=== PATIENT | female | born 1960 | race Caucasian/White ===

== ENCOUNTER 2021-02-23 09:53 | Day surgery (SDC) | payer OTHER ==
[2021-03-11] MEDS ORDERED: MULVITA PO (11:14)
[2021-03-11] MEDS ORDERED: Vitamin C100 MG PO (11:14)
[2021-03-11] MEDS ORDERED: DICL75ER PO (11:14)
[2021-03-11] MEDS ORDERED: Vitamin B Comple1 EA PO (11:15)
[2021-03-11] MEDS ORDERED: ZINC15 PO (11:15)
[2021-03-11] MEDS ORDERED: UBID10 PO (11:15)
== END 2021-02-23 22:46 | disposition home or self-care (01) ==
LOC: MOI US 09:53
DX: C50.911 Malignant neoplasm of unspecified site of right female breast (principal); Z17.0 Estrogen receptor positive status [ER+]
CPT/HCPCS: 19083; 77065; 88305; 88360; A4648; G0279

== ENCOUNTER 2021-03-20 08:57 | Day surgery (SDC) | payer OTHER ==
[~2021-03-20 08:57] MED LIST: DICL75ER PO; MULVITA PO; UBID10 PO; Vitamin B Comple1 EA PO; Vitamin C100 MG PO; ZINC15 PO
== END 2021-03-20 22:41 | disposition home or self-care (01) ==
LOC: MOI US 08:57 → MOI MAM 09:30 → MOI US 22:41
DX: C50.411 Malignant neoplasm of upper-outer quadrant of right female breast (principal); Z12.0 Encounter for screening for malignant neoplasm of stomach
CPT/HCPCS: 19285; 77065; A4648

== ENCOUNTER 2021-03-23 09:16 | Day surgery (SDC) | payer OTHER ==
[~2021-03-23] VITALS: Ht 165.1 cm; Wt 82.7 kg
--- NOTE | 2021-03-23 13:39 | NUR ---
History, Chart, Medications and Allergies reviewed before start of procedure. Lungs clear T/O to Auscultation. Patient confirms NPO status and agrees with scheduled surgery. Pre-Op teaching done. Pt verbalizes understanding. PT IV STARTED AFTER MULT ATTEMPTS BY MULT RN'S.
--- NOTE | 2021-03-23 14:30 | NUR ---
PTS UPDATED BY DAREK CONTE THAT PTS SURGERY HAS BEEN SIGNIFICANTLY DELAYED. PT UPDATED AND IS VERY UNDERSTANDING WELL.
--- NOTE | 2021-03-23 14:31 | NUR ---
REPORT GIVEN TO NURSE Dewey WHO IS ASSUMING CARE OF PT AT THIS TIME.
--- NOTE | 2021-03-23 15:30 | NUR ---
DR. MARIE AT BEDSIDE TO TALK WITH PATIENT.
--- NOTE | 2021-03-23 16:40 | NUR ---
PT RESTING COMFORTABLY. PT DENIES NEEDS AT THIS TIME. CALL LIGHT IN REACH.
--- NOTE | 2021-03-23 17:34 | NUR ---
Pt assisted to bathroom via wheelchair by adrian jackson. Nuc-med down to assess the pt with the gauger counter for amount of isotope. Bindu thompson discusses with pt the options of proceeeding this evening with Dr Amador or rescheduling procedure. Pt became tearful when discussed having to attempt iv placement again. Pt decided that she would like to continue to wait for Dr. Amador and have her procedure tonight. Pt is pleasant and understanding. Pt called by Bindu and updated on the plan.
--- NOTE | 2021-03-23 20:34 | NUR ---
PT SITTING UP IN BED TAKING ICE CHIPS. DENIES PAIN AT THIS TIME. VSS. SPEECH SLOW BUT CLEAR. PT FOLLOWING INSTRUCTIONS. LUNGS CLEAR BUT DECREASED IN THE BASES ON RO[place]IR. RESP EVEN AND NONLABORED. PT DOING C&DB WHEN INSTRUCTED. HEART RATE REGULAR. BP STABLE. GUAZE DRSG TO LEFT BREAST INTACT, NO BLEEDING NOTED.
--- NOTE | 2021-03-23 21:21 | NUR ---
PAIN PT C/O PAIN TO RIGHT BREAST 02/23, RECEIVED ORDER FROM DR MARIE FOR ONE TIME WOLVERINE, GIVEN WITH WATER AND CRACKERS.
--- NOTE | 2021-03-23 21:39 | NUR ---
ASSISTED PT WITH GETTING DRESSED AND SITTING UP IN CHAIR. VSS.
--- NOTE | 2021-03-23 22:02 | NUR ---
PT UP TO BSC WITH ASSIST, VOIDED 200 ML LIGHT GREEN URINE. BACK TO SITTING IN CHAIR. WAITING FOR FOR DISCHARGE.
--- NOTE | 2021-03-23 22:27 | NUR ---
PT DISCHARGED TO HOME WITH . REVIEWED DISCHARGE ORDERS WITH PT AND . PT TRANSFERED TO [facility] WITH ONE ASSIST THAN TO CAR.
== END 2021-03-23 22:55 | disposition home or self-care (01) ==
LOC: NM 09:16 → ORSCMMR 09:16 → NM 10:00 → ORSCMMR 22:55
PROVIDERS: Surgery
PROC: 07B50ZX Excision of Right Axillary Lymphatic, Open Approach, Diagnostic (ICD-10-PCS; principal; 2021-03-23 14:15)
PROC: 0HBT0ZZ Excision of Right Breast, Open Approach (ICD-10-PCS; principal; 2021-03-23 14:15)
DX: C50.411 Malignant neoplasm of upper-outer quadrant of right female breast (principal); Z17.0 Estrogen receptor positive status [ER+]; C77.3 Secondary and unspecified malignant neoplasm of axilla and upper limb lymph nodes; Z87.891 Personal history of nicotine dependence
CPT/HCPCS: 38792; 76098; 88305; 88307; A9520; J0690; J1100; J2405; J2704; J3010; J7120; Q9968